=== PATIENT | female | born 1975 | race Caucasian/White ===

== ENCOUNTER 2024-09-18 14:33 | Emergency (ER) | payer BC ==
[~2024-09-18] VITALS: Ht 157.5 cm; Wt 82.1 kg
[2024-09-18] MEDS: IPRATROPIUM BROMIDE 0.5 MG/2.5 ML NEBU NEB ONE (14:51)
[2024-09-18] MEDS: ALBUTEROL SULFATE 2.5 MG/3 ML NEBU NEB ONE ×2 (14:51→15:13)
[2024-09-18 14:55] VITALS: O2SAT 96
[2024-09-18] MEDS: IV NORMAL SALINE 1000 ML BAG IV ONE (14:58)
[2024-09-18] MEDS ORDERED: methylPREDNISolone SOD SUCC 125 MG/2 ML VIAL ONE (15:03)
[2024-09-18] MEDS ORDERED: CEFTRIAXONE /D5W 50ML IVPB **ER PYXIS IV ONE (15:03)
[2024-09-18 15:04] LABS: BASOPHILS % (AUTO) 0.9 % (0.0-2.0); EOSINOPHILS # (AUTO) 0.2 K/uL (0.0-0.7); EOSINOPHILS % (AUTO) 3.1 % (0.0-7.0); HEMATOCRIT 41.5 % (31.2-41.9); HEMOGLOBIN 14.1 g/dL (10.9-14.3); LYMPHOCYTES # (AUTO) 1.1 K/uL (0.8-4.8); LYMPHOCYTES % (AUTO) 21.9 % (20.5-51.5); MEAN CORPUSCULAR HEMOGLOBIN 30.6 uug (24.7-32.8); MEAN CORPUSCULAR HGB CONC 34 g/dL (32.3-35.6); MEAN CORPUSCULAR VOLUME 89.8 fL (75.5-95.3); MONOCYTES # (AUTO) 0.6 K/uL (0.1-1.30); NEUTROPHILS % (AUTO) 62.1 % (38.5-71.5); PLATELET COUNT (AUTO) 203 K/uL (179-408); RED BLOOD CELL COUNT(AUTO) 4.63 MIL/uL (3.63-4.92); RED CELL DISTRIBUTION WIDTH 12.9 % (12.3-17.7); WHITE BLOOD COUNT (AUTO) 4.8 K/uL (3.8-11.8)
[2024-09-18] MEDS: CEFTRIAXONE 1 G in IV DEXTROSE 5% 50 ML IV ONE (15:08)
[2024-09-18] MEDS: methylPREDNISolone SOD SUCC 125 MG/2 ML VIAL IV ONE (15:08)
[2024-09-18 15:10] VITALS: O2SAT 99
[2024-09-18 15:13] LABS: DIFFERENTIAL COMMENT 1
[2024-09-18 15:15] VITALS: O2SAT 99
[2024-09-18] MEDS ORDERED: ALBUTEROL SULFATE 2.5 MG/3 ML NEBU ONE ×2 (15:15)
[2024-09-18] MEDS ORDERED: IPRATROPIUM BROMIDE 0.5 MG/2.5 ML NEBU ONE (15:15)
[2024-09-18 15:21] LABS: CALCIUM 9.1 mg/dL (8.5-10.1); CREATININE 0.6 mg/dL (0.6-1.3); POTASSIUM 3.9 mmol/L (3.5-5.1)
[2024-09-18] MEDS ORDERED: KETOROLAC TROMETHAMINE 30 MG INJ ONE (15:42)
[2024-09-18] MEDS: KETOROLAC TROMETHAMINE 30 MG INJ IM ONE (15:45)
[2024-09-18 16:00] VITALS: O2SAT 99
[2024-09-18] MEDS ORDERED: GUAI-925 PO (17:25)
[2024-09-18] MEDS ORDERED: FLUT1BLS15 INH (17:25)
[2024-09-18] MEDS ORDERED: IBUP-1955 PO (17:25)
[2024-09-18] MEDS ORDERED: ALBU8.5H8 INH (17:25)
[2024-09-18] MEDS ORDERED: DOXY-226 PO (17:25)
[2024-09-18 18:39] VITALS: BP 112/77; O2SAT 99
== END 2024-09-18 17:30 | disposition home or self-care (01) ==
LOC: ER 14:33
DX: J06.9 Acute upper respiratory infection, unspecified (principal); J98.01 Acute bronchospasm; R94.31 Abnormal electrocardiogram [ECG] [EKG]; Z79.51 Long term (current) use of inhaled steroids
CPT/HCPCS: 99285; 96365; 96361; 96375; 80048; 96372; 85025; 36415; 94640; 93005; J1885; J2919; J0696; J7040; A4606; A4663; J3590